=== PATIENT | male | born 1965 | race Caucasian/White ===

== ENCOUNTER 2016-12-27 13:17 | Emergency (ER) | payer OTHER ==
[2016-12-27] MEDS ORDERED: Ketorolac 30 MG/ML SDV IVPUSH ONE (13:37)
[2016-12-27] MEDS ORDERED: Ondansetron 4 MG/2 ML SDV IVPUSH ONE (13:37)
[2016-12-27] MEDS ORDERED: Sodium Chloride 0.9% 1,000 ML IV ONE (13:37)
--- NOTE | 2016-12-27 13:39 | EDM.PDOC ---
ED HPI GENERAL MEDICAL PROBLEM - General Chief Complaint: Abdominal Pain Stated Complaint: RIGHT SIDE ABDOMINAL PAIN Time Seen by Provider: 12/27/16 13:38 Source of Information: Reports: Patient - History of Present Illness INITIAL COMMENTS - FREE TEXT/NARRATIVE: HISTORY AND PHYSICAL: History of present illness: []Patient presents with right-sided abdominal pain upper and lower quadrant on the right 8 out of 10 today improved somewhat with Toradol, he has had chronic abdominal pain since 2007 he has had EGD and colonoscopy within the last month he has had multiple ERCPs performed didn't male as well as food allergy testing including celiac sprue and multiple other tests and cholecystectomy No fever he did complain of nausea on arrival no vomiting chills sweats no chest pain shortness breath headache dizziness palpitation no bowel or urine symptoms Review of systems: As per history of present illness and below otherwise all systems reviewed and negative. Past medical history: As per history of present illness and as reviewed below otherwise noncontributory. Surgical history: As per history of present illness and as reviewed below otherwise noncontributory. Social history: No reported history of drug or alcohol abuse. Family history: As per history of present illness and as reviewed below otherwise noncontributory. Physical exam: HEENT: Atraumatic, normocephalic, pupils reactive, negative for conjunctival pallor or scleral icterus, mucous membranes moist, throat clear, neck supple, nontender, trachea midline. Lungs: Clear to auscultation, breath sounds equal bilaterally, chest nontender. Heart: S1S2, regular, negative for clicks, rubs, or JVD. Abdomen: Soft, nondistended, nontender. On left, tender with deep palpation right upper quadrant as well as right lower quadrant no guarding or rebound Negative for masses or hepatosplenomegaly. Negative for costovertebral tenderness. Pelvis: Stable nontender. Genitourinary: Deferred. Rectal: Deferred. Extremities: Atraumatic, negative for cords or calf pain. Neurovascular unremarkable. Neuro: Awake, alert, oriented. Cranial nerves II through XII unremarkable. Cerebellum unremarkable. Motor and sensory unremarkable throughout. Exam nonfocal. Diagnostics: []Lab as below CT abdomen pelvis with and without contrast Therapeutics: []1 L normal saline bolus Zofran 8 mg IV Toradol 30 mg IV Pain medication offered patient declined Trial of Bentyl 4 times a day 7 days Follow-up with primary care in 2 weeks and specialty care through [facility] as needed Impression: []Abdominal pain Definitive disposition and diagnosis as appropriate pending reevaluation and review of above. Right Lower Abdomen Pain Score (Numeric/FACES): 10 - Related Data Allergies Allergy/AdvReac Type Severity Reaction Status Date / Time acetaminophen [From Percocet] Allergy Anaphylactic Verified 12/27/16 13:23 Shock codeine Allergy Anaphylactic Verified 12/27/16 13:23 Shock hydrocodone bitartrate Allergy Anaphylactic Verified 12/27/16 13:23 [From Vicodin] Shock morphine Allergy Anaphylactic Verified 12/27/16 13:23 Shock oxycodone HCl [From Percocet] Allergy Anaphylactic Verified 12/27/16 13:23 Shock Home Meds: Home Meds Levothyroxine Sodium [Synthroid] 25 mcg PO DAILY 09/19/15 [History] Metoprolol Succinate [Toprol XL] 25 mg PO DAILY 09/19/15 [History] Sertraline [Zoloft] 25 mg PO DAILY 09/19/15 [History] levETIRAcetam [Keppra] 1 dose PO ASDIRECTED 09/19/15 [History] Cyclobenzaprine [Flexeril] 10 mg PO DAILY 12/27/16 [History] Midodrine 5 mg PO DAILY 12/27/16 [History] Ranitidine [Zantac] 150 mg PO DAILY 12/27/16 [History] atorvaSTATin Calcium [Atorvastatin Calcium] 80 mg PO DAILY 12/27/16 [History] traZODone HCl [Trazodone HCl] 100 mg PO DAILY 12/27/16 [History] Past Medical History Cardiovascular History: Reports: Pacemaker, Other (See Below) Other Cardiovascular History: Vasovagal syncope dx Neurological History: Reports: Seizure Psychiatric History: Reports: Anxiety, Depression - Past Surgical History GI Surgical History: Reports: Colonoscopy Social & Family History - Family History Family Medical History: Noncontributory - Tobacco Use Smoking Status *Q: Never Smoker - Caffeine Use Caffeine Use: Reports: Coffee - Recreational Drug Use Recreational Drug Use: No ED ROS GENERAL - Review of Systems Review Of Systems: ROS reveals no pertinent complaints other than HPI. ED EXAM, GENERAL - Physical Exam Exam: See Below Course - Vital Signs Last Recorded V/S: Last Vital Signs Temp 36.6 C 12/27/16 14:27 Pulse 75 12/27/16 13:24 Resp 18 12/27/16 13:24 BP 117/79 12/27/16 14:27 Pulse Ox 95 12/27/16 13:24 - Orders/Labs/Meds Labs: Laboratory Tests 12/27/16 12/27/16 12/27/16 Range/Units 13:49 13:49 13:49 WBC 6.21 (4.0-11.0) K/uL RBC 5.01 (4.50-5.90) M/uL Hgb 15.8 (13.0-17.0) g/dL Hct 46.0 (38.0-50.0) % MCV 91.8 (80.0-98.0) fL MCH 31.5 (27.0-32.0) pg MCHC 34.3 (31.0-37.0) g/dL RDW Std Deviation 41.7 (28.0-62.0) fl RDW Coeff of Bela 13 (11.0-15.0) % Plt Count 216 (150-400) K/uL MPV 9.40 (7.40-12.00) fL Neut % (Auto) 57.4 (48.0-80.0) % Lymph % (Auto) 32.4 (16.0-40.0) % [place] % (Auto) 7.4 (0.0-15.0) % Eos % (Auto) 2.3 (0.0-7.0) % Baso % (Auto) 0.5 (0.0-1.5) % Neut # (Auto) 3.6 (1.4-5.7) K/uL Lymph # (Auto) 2.0 (0.6-2.4) K/uL [place] # (Auto) 0.5 (0.0-0.8) K/uL Eos # (Auto) 0.1 (0.0-0.7) K/uL Baso # (Auto) 0.0 (0.0-0.1) K/uL Nucleated RBC % 0.0 /100WBC Nucleated RBCs # 0 K/uL Sodium 140 (136-146) mmol/L Potassium 4.6 (3.5-5.1) mmol/L Chloride 107 (98-110) mmol/L Carbon Dioxide 26 (21-31) mmol/L BUN 19 (6.0-23.0) mg/dL Creatinine 1.0 (0.6-1.5) mg/dL Est Cr Clr Drug Dosing 103.89 mL/min Estimated GFR (MDRD) > 60.0 ml/min Glucose 110 (60-110) mg/dL Calcium 9.1 (8.8-10.8) mg/dL Total Bilirubin 0.7 (0.1-1.5) mg/dL AST 30 (5-40) IU/L ALT 64 H (8-54) IU/L Alkaline Phosphatase 96 (40-150) Troponin I < 0.10 (0.0-0.29) NG/ML Total Protein 6.9 (6.0-8.0) g/dL Albumin 4.4 (3.5-5.0) g/dL Globulin 2.5 (2.0-3.5) g/dL Albumin/Globulin Ratio 1.8 (1.3-2.8) Amylase 75 (10-90) U/L Lipase 9 (7-80) U/L Urine Color Urine Appearance Urine pH (5.0-8.0) Ur Specific [place] (1.001-1.035) Urine Protein (NEGATIVE) mg/dL Urine Glucose (UA) (NEGATIVE) mg/dL Urine Ketones (NEGATIVE) mg/dL Urine Occult Blood (NEGATIVE) Urine Nitrite (NEGATIVE) Urine Bilirubin (NEGATIVE) Urine Urobilinogen (<2.0) EU/dL Ur Leukocyte Esterase (NEGATIVE) Urine RBC (0-2/HPF) Urine WBC (0-5/HPF) Ur Epithelial Cells (NONE-FEW) Urine Bacteria (NEGATIVE) 12/27/16 Range/Units 14:10 WBC (4.0-11.0) K/uL RBC (4.50-5.90) M/uL Hgb (13.0-17.0) g/dL Hct (38.0-50.0) % MCV (80.0-98.0) fL MCH (27.0-32.0) pg MCHC (31.0-37.0) g/dL RDW Std Deviation (28.0-62.0) fl RDW Coeff of Bela (11.0-15.0) % Plt Count (150-400) K/uL MPV (7.40-12.00) fL Neut % (Auto) (48.0-80.0) % Lymph % (Auto) (16.0-40.0) % [place] % (Auto) (0.0-15.0) % Eos % (Auto) (0.0-7.0) % Baso % (Auto) (0.0-1.5) % Neut # (Auto) (1.4-5.7) K/uL Lymph # (Auto) (0.6-2.4) K/uL [place] # (Auto) (0.0-0.8) K/uL Eos # (Auto) (0.0-0.7) K/uL Baso # (Auto) (0.0-0.1) K/uL Nucleated RBC % /100WBC Nucleated RBCs # K/uL Sodium (136-146) mmol/L Potassium (3.5-5.1) mmol/L Chloride (98-110) mmol/L Carbon Dioxide (21-31) mmol/L BUN (6.0-23.0) mg/dL Creatinine (0.6-1.5) mg/dL Est Cr Clr Drug Dosing mL/min Estimated GFR (MDRD) ml/min Glucose (60-110) mg/dL Calcium (8.8-10.8) mg/dL Total Bilirubin (0.1-1.5) mg/dL AST (5-40) IU/L ALT (8-54) IU/L Alkaline Phosphatase (40-150) Troponin I (0.0-0.29) NG/ML Total Protein (6.0-8.0) g/dL Albumin (3.5-5.0) g/dL Globulin (2.0-3.5) g/dL Albumin/Globulin Ratio (1.3-2.8) Amylase (10-90) U/L Lipase (7-80) U/L Urine Color YELLOW Urine Appearance CLEAR Urine pH 5.0 (5.0-8.0) Ur Specific [place] 1.015 (1.001-1.035) Urine Protein NEGATIVE (NEGATIVE) mg/dL Urine Glucose (UA) NEGATIVE (NEGATIVE) mg/dL Urine Ketones NEGATIVE (NEGATIVE) mg/dL Urine Occult Blood NEGATIVE (NEGATIVE) Urine Nitrite NEGATIVE (NEGATIVE) Urine Bilirubin NEGATIVE (NEGATIVE) Urine Urobilinogen 0.2 (<2.0) EU/dL Ur Leukocyte Esterase NEGATIVE (NEGATIVE) Urine RBC NONE SEEN (0-2/HPF) Urine WBC NONE SEEN (0-5/HPF) Ur Epithelial Cells RARE (NONE-FEW) Urine Bacteria RARE (NEGATIVE) Meds: Medications Discontinued Medications Generic Name Dose Route Start Last Admin Trade Name Freq PRN Reason Stop Dose Admin Sodium Chloride 1,000 mls @ 999 mls/hr 12/27/16 13:37 12/27/16 14:04 Normal Saline IV 12/27/16 14:37 999 mls/hr STAT ONE Administration Iopamidol 100 ml 12/27/16 15:24 12/27/16 15:25 Isovue Multipack-370 (76%) IVPUSH 12/27/16 15:25 100 ml ONETIME STA Administration Ketorolac Tromethamine 30 mg 12/27/16 13:37 12/27/16 14:11 Toradol IVPUSH 12/27/16 13:38 30 mg ONETIME ONE Administration Ondansetron HCl 8 mg 12/27/16 13:37 12/27/16 14:11 Zofran IVPUSH 12/27/16 13:38 8 mg ONETIME ONE Administration Departure - Departure Time of Disposition: 16:26 Disposition: Home, Self-Care 01 Condition: Good Clinical Impression: Abdominal pain - Discharge Information Forms: ED Department Discharge Additional Instructions: Medication as prescribed Return if symptoms persist or worsen Follow-up with primary care in 2 weeks specialty services as needed The following information is given to patients seen in the emergency department who are being discharged to home. This information is to outline your options for follow-up care. We provide all patients seen in our emergency department with a follow-up referral. The need for follow-up, as well as the timing and circumstances, are variable depending upon the specifics of your emergency department visit. If you don't have a primary care physician on staff, we will provide you with a referral. We always advise you to contact your personal physician following an emergency department visit to inform them of the circumstance of the visit and for follow-up with them and/or the need for any referrals to a consulting specialist. The emergency department will also refer you to a specialist when appropriate. This referral assures that you have the opportunity for follow-up care with a specialist. All of these measure are taken in an effort to provide you with optimal care, which includes your follow-up. Under all circumstances we always encourage you to contact your private physician who remains a resource for coordinating your care. When calling for follow-up care, please make the office aware that this follow-up is from your recent emergency room visit. If for any reason you are refused follow-up, please contact the [facility] emergency department at and asked to speak to the emergency department charge nurse.
[2016-12-27 14:17] LABS: CHLORIDE,CL 107 mmol/L (98-110); SODIUM,NA 140 mmol/L (136-146)
[2016-12-27] MEDS ORDERED: Iopamidol 755 MG/ML 500 ML Multipack Bottle IVPUSH STA (15:24)
--- NOTE | 2016-12-27 16:04 | CT ---
CT scan of the abdomen and pelvis including postcontrast exam Clinical history abdominal pain Procedure: Multiple computed tomographic sections of the abdomen and pelvis were obtained prior to a nd after administration of intravenous contrast form of Isovue-370 100 mL. Findings: Lung bases and lower chest: No pulmonary parenchymal abnormalities are identified. There is a cardia c pacemaker in place. Liver pancreas biliary tract and spleen: There is significant hepatic steatosis with normal-sized sp shanice normal pancreas and evidence of prior cholecystectomy. Kidneys adrenals and retroperitoneum: There is no hydronephrosis hydroureter or nephrocalcinosis K s how an or enhancing renal mass. Kidneys are symmetric in size and appearance. Adrenal glands are nor mal. No retroperitoneal adenopathy. Bowel and mesentery: There is no evidence of a dilated tubular appendix or pericecal pathology. A fe w minor diverticula of the sigmoid colon are present without diverticulitis. No abnormally dilated b owel. Pelvic organs and lymph nodes: There is no pelvic mass or lymphadenopathy. Prostate is normal. Bladd er is normal. Skeleton: No aggressive bony lesions. No specific acute findings Impression: Hepatic steatosis. Cholecystectomy. No acute abnormalities.
[2016-12-27 16:59] VITALS: BP 129/72
== END 2016-12-27 16:35 | disposition home or self-care (01) ==
LOC: MW.ED 13:17
DX: R10.11 Right upper quadrant pain (principal); R10.31 Right lower quadrant pain; F41.9 Anxiety disorder, unspecified; F32.9 Major depressive disorder, single episode, unspecified; Z98.890 Other specified postprocedural states; Z79.899 Other long term (current) drug therapy; Z88.5 Allergy status to narcotic agent; Z88.6 Allergy status to analgesic agent
CPT/HCPCS: 36415; 74178; 80053; 81001; 82150; 83690; 84484; 85025; 96361; 96374; 96375; 99284; J1885; J2405; J7040; Q9967

== ENCOUNTER 2017-01-27 16:42 | Emergency (ER) | payer MEDICARE, BC ==
--- NOTE | 2017-01-27 17:18 | EDM.PDOC ---
ED HPI GENERAL MEDICAL PROBLEM - General Chief Complaint: Lower Extremity Injury/Pain Stated Complaint: BOTH KNEES ARE REDISH W/NO BLOOD FLOW Time Seen by Provider: 01/27/17 16:57 - History of Present Illness INITIAL COMMENTS - FREE TEXT/NARRATIVE: HISTORY AND PHYSICAL: History of present illness: Patient is a 52-year-old male with a history of hypertension hypothyroidism hypercholesterolemia and [place] [facility] [place] [facility] and presents with complaints of redness warmth and pain to his left knee which have persisted and only mild symptoms earlier on his right knee that have now gone away. The patient says that both knees looked somewhat reddish and felt warm earlier this afternoon but the right knee symptoms have subsided. The left knee symptoms have persisted and he has not noticed any gross swelling. He has had no recent trauma to the area but he was doing yard work today in which he was on his knees. The patient now after discussing things with me says that his knee felt a little funny and it may have given out a couple of days ago and he had some discomfort with it which he did not recall until we were talking about it. He has no calf tenderness or swelling he has no distal ankle or foot tenderness and no proximal hip tenderness. He has no systemic complaints of fever chills chest pain shortness of breath nausea vomiting. The patient also incidentally tells me that he has run out of his metoprolol and is concerned about not having a prescription. The patient has not taken anything for this pain and does not request anything for the pain. He does not have pain behind the knee and only anteriorly. The patient says that he has had surgery on his right knee in the past and he was told that he would likely need surgery on his left knee but he never had that surgery performed and that was back in the late 1980s. Patient denies any other joint redness swelling or discomfort. Review of systems: As per history of present illness and below otherwise all systems reviewed and negative. Past medical history: As per history of present illness and as reviewed below otherwise noncontributory. Surgical history: As per history of present illness and as reviewed below otherwise noncontributory. Social history: No reported history of drug or alcohol abuse. Family history: As per history of present illness and as reviewed below otherwise noncontributory. Physical exam: Gen.: Well-developed well-nourished man who is nontoxic and speaking clearly and easily in the ED. HEENT: Atraumatic, normocephalic, negative for conjunctival pallor or scleral icterus, mucous membranes moist, throat clear, neck supple, nontender, trachea midline. Lungs: Clear to auscultation, breath sounds equal bilaterally, chest nontender. Heart: S1S2, regular rate and rhythm no overt murmurs Abdomen: Soft, nondistended, nontender. NABS Pelvis: Stable nontender. No lateral hip tenderness with no palpable bony deformities appreciated in any of the extremities Genitourinary: Deferred. Rectal: Deferred. Extremities: Atraumatic with full range of motion and no palpable bony deformities, there is no leg asymmetry or calf tenderness and no pedal edema, at the right knee there is an old well-healed incision and there is no soft tissue swelling joint effusion warmth or erythema appreciated. At the left knee there is ill-defined pink erythema and warmth but no joint effusion and no palpable bony deformities and there is some tenderness with deep palpation. There is no tenderness in the popliteal fossa. There is no streaking of the erythema and no maximal thigh tenderness sore swelling. The legs are, negative for cords or calf pain. Neurovascular unremarkable. Neuro: Awake, alert, oriented. Cranial nerves II through XII unremarkable. Cerebellum unremarkable. Motor and sensory unremarkable throughout. Exam nonfocal. Diagnostics: CBC CMP CRP sedimentation rate uric acid bilateral knee x-rays Therapeutics: Patient deferred pain medication at this time, prednisone Discussed all testing results with the patient and family at bedside and throughout the course of the patient's stay here despite no medications being given the area of erythema and warmth at the left knee has decreased. I've also discussed with them that they could be possibly a low-grade cellulitis due to his kneeling today and that would cover him with Keflex. I will write for diclofenac as an anti-inflammatory and I will put him on a brief burst of steroids to help with the probable inflammatory arthritis that we are seeing. I will refer him to the orthopedic clinic and stressed the need for follow-up. I discussed reasons to return to the ED. Patient continues to be nontoxic and is aware to monitor his temperature and any changes in the erythema and the legs. Impression: Inflammatory arthritis/bilateral knee pain Definitive disposition and diagnosis as appropriate pending reevaluation and review of above. - Related Data Allergies Allergy/AdvReac Type Severity Reaction Status Date / Time acetaminophen [From Percocet] Allergy Anaphylactic Verified 01/27/17 17:00 Shock codeine Allergy Anaphylactic Verified 01/27/17 17:00 Shock hydrocodone bitartrate Allergy Anaphylactic Verified 01/27/17 17:00 [From Vicodin] Shock morphine Allergy Anaphylactic Verified 01/27/17 17:00 Shock oxycodone [From OxyContin] Allergy Redness Verified 01/27/17 17:00 oxycodone HCl [From Percocet] Allergy Anaphylactic Verified 01/27/17 17:00 Shock Home Meds: Home Meds Levothyroxine Sodium [Synthroid] 100 mcg PO DAILY 09/19/15 [History] Metoprolol Succinate [Toprol XL] 0.5 tab PO BID 09/19/15 [History] Sertraline [Zoloft] 50 mg PO DAILY 09/19/15 [History] levETIRAcetam [Keppra] 750 mg PO DAILY 09/19/15 [History] Cyclobenzaprine [Flexeril] 10 mg PO DAILY 12/27/16 [History] Midodrine 5 mg PO DAILY 12/27/16 [History] atorvaSTATin Calcium [Atorvastatin Calcium] 80 mg PO DAILY 12/27/16 [History] traZODone HCl [Trazodone HCl] 100 mg PO DAILY 12/27/16 [History] Past Medical History Cardiovascular History: Reports: Pacemaker, Other (See Below) Other Cardiovascular History: Vasovagal syncope dx Neurological History: Reports: Seizure Psychiatric History: Reports: Anxiety, Depression - Past Surgical History GI Surgical History: Reports: Colonoscopy Social & Family History - Family History Family Medical History: Noncontributory - Tobacco Use Smoking Status *Q: Never Smoker - Caffeine Use Caffeine Use: Reports: Coffee - Recreational Drug Use Recreational Drug Use: No Review of Systems - Review of Systems Review Of Systems: ROS reveals no pertinent complaints other than HPI. ED EXAM, GENERAL - Physical Exam Exam: See Below (See dictation) Course - Vital Signs Last Recorded V/S: Last Vital Signs Temp 36.6 C 01/27/17 16:54 Pulse 106 H 01/27/17 16:54 Resp 16 01/27/17 16:54 BP 119/86 01/27/17 16:54 Pulse Ox 96 01/27/17 16:54 - Orders/Labs/Meds Orders: Active Orders 24 hr Category Date Time Status Knee 3V Lt [CR] Stat Exams 01/27/17 17:10 Taken Knee 3V Rt [CR] Stat Exams 01/27/17 17:10 Taken predniSONE Med 01/27/17 18:47 Once 40 mg PO ONETIME ONE Labs: Laboratory Tests 01/27/17 01/27/17 Range/Units 17:20 17:20 WBC 6.41 (4.0-11.0) K/uL RBC 4.99 (4.50-5.90) M/uL Hgb 15.8 (13.0-17.0) g/dL Hct 45.3 (38.0-50.0) % MCV 90.8 (80.0-98.0) fL MCH 31.7 (27.0-32.0) pg MCHC 34.9 (31.0-37.0) g/dL RDW Std Deviation 40.4 (28.0-62.0) fl RDW Coeff of Bela 12 (11.0-15.0) % Plt Count 197 (150-400) K/uL MPV 9.30 (7.40-12.00) fL Neut % (Auto) 55.9 (48.0-80.0) % Lymph % (Auto) 31.4 (16.0-40.0) % [place] % (Auto) 9.2 (0.0-15.0) % Eos % (Auto) 3.0 (0.0-7.0) % Baso % (Auto) 0.5 (0.0-1.5) % Neut # (Auto) 3.6 (1.4-5.7) K/uL Lymph # (Auto) 2.0 (0.6-2.4) K/uL [place] # (Auto) 0.6 (0.0-0.8) K/uL Eos # (Auto) 0.2 (0.0-0.7) K/uL Baso # (Auto) 0.0 (0.0-0.1) K/uL Nucleated RBC % 0.0 /100WBC Nucleated RBCs # 0 K/uL ESR 1 (0-19) mm/hr Sodium 141 (136-146) mmol/L Potassium 4.6 (3.5-5.1) mmol/L Chloride 106 (98-110) mmol/L Carbon Dioxide 28 (21-31) mmol/L BUN 14 (6.0-23.0) mg/dL Creatinine 1.1 (0.6-1.5) mg/dL Est Cr Clr Drug Dosing 93.41 mL/min Estimated GFR (MDRD) > 60.0 ml/min Glucose 102 (60-110) mg/dL Uric Acid 6.4 (2.1-7.4) mg/dL Calcium 9.8 (8.8-10.8) mg/dL Total Bilirubin 0.5 (0.1-1.5) mg/dL AST 35 (5-40) IU/L ALT 70 H (8-54) IU/L Alkaline Phosphatase 101 (40-150) C-Reactive Protein 0.16 (0.0-0.5) mg/dL Total Protein 6.9 (6.0-8.0) g/dL Albumin 4.3 (3.5-5.0) g/dL Globulin 2.6 (2.0-3.5) g/dL Albumin/Globulin Ratio 1.7 (1.3-2.8) Departure - Departure Time of Disposition: 18:46 Disposition: Home, Self-Care 01 Condition: Good Clinical Impression: Bilateral knee pain Qualifiers: Chronicity: acute Qualified Code(s): M25.561 - Pain in right knee; M25.562 - Pain in left knee - Discharge Information Referrals: Norma Pfeiffer DUCK OPERATOR [Primary Care Provider] - Forms: ED Department Discharge Additional Instructions: The following information is given to patients seen in the emergency department who are being discharged to home. This information is to outline your options for follow-up care. We provide all patients seen in our emergency department with a follow-up referral. The need for follow-up, as well as the timing and circumstances, are variable depending upon the specifics of your emergency department visit. If you don't have a primary care physician on staff, we will provide you with a referral. We always advise you to contact your personal physician following an emergency department visit to inform them of the circumstance of the visit and for follow-up with them and/or the need for any referrals to a consulting specialist. The emergency department will also refer you to a specialist when appropriate. This referral assures that you have the opportunity for followup care with a specialist. All of these measure are taken in an effort to provide you with optimal care, which includes your followup. Under all circumstances we always encourage you to contact your private physician who remains a resource for coordinating your care. When calling for followup care, please make the office aware that this follow-up is from your recent emergency room visit. If for any reason you are refused follow-up, please contact the [facility] emergency department at and ask to speak to the emergency department charge nurse. [facility]Orthopedic clinic Professional Building [address] [place] [address] [address] [place] [address] [facility] Medicine and Family [facility] [address] [place] [id number] Please call and follow-up with our orthopedics clinic as we discussed and ice and elevate the areas. Use medications as prescribed and monitor the redness warmth in any fevers you may have. Return to ER as needed and as discussed. - My Orders Last 24 Hours: My Active Orders 01/27/17 17:10 Knee 3V Lt [CR] Stat Knee 3V Rt [CR] Stat 01/27/17 18:47 predniSONE 40 mg PO ONETIME ONE - Assessment/Plan Last 24 Hours: My Active Orders 01/27/17 17:10 Knee 3V Lt [CR] Stat Knee 3V Rt [CR] Stat 01/27/17 18:47 predniSONE 40 mg PO ONETIME ONE
[2017-01-27 17:51] LABS: CHLORIDE,CL 106 mmol/L (98-110); SODIUM,NA 141 mmol/L (136-146)
[2017-01-27] MEDS ORDERED: predniSONE 20 MG Tab PO ONE (18:47)
[2017-01-27 19:04] VITALS: BP 127/79
--- NOTE | 2017-01-29 15:02 | CR ---
EXAM DATE: 01/27/17 PATIENT'S AGE: 52 Patient: IRAIS HORTON Facility: [place], [place] Site . Site : [id number] Study: XRay Knee Left [id number] 6:02:02 PM Ordering Physician: Doug Beltrán Final Report: INDICATION: Pain. Evaluate for arthritic changes. Technique: Three views left knee. Findings: Minimal degenerative changes left knee. Left knee otherwise negative. Dictated by Yassine Saldivar MD @ Jan 27 2017 6:30PM (Electronic Signature) Report Signed by Proxy. PIETRO
--- NOTE | 2017-01-29 15:03 | CR ---
EXAM DATE: 01/27/17 PATIENT'S AGE: 52 Patient: IRAIS HORTON Facility: [place], [place] Site . Site : 1965 Study: XRay Knee Right [id number]/9/[id number] 6:02:48 PM Ordering Physician: Doug Beltrán Final Report: INDICATION: Pain. Evaluate for arthritic changes. Technique: Three views right knee. Findings: Mild to moderate soft tissue swelling right knee anteriorly extending to the infrapatellar region. Cortical irregularity and cortical thickening involving the right proximal tibia anteriorly with possible lucent and sclerotic tracts suggesting prior surgery. Clinical correlation recommended. Mild degenerative arthritis right knee. Right patella is high-riding. Right knee otherwise negative. Dictated by Yassine Saldivar MD @ Jan 27 2017 6:30PM (Electronic Signature) Report Signed by Proxy. PIETRO
== END 2017-01-27 19:01 | disposition home or self-care (01) ==
LOC: MW.ED 16:42
DX: M25.562 Pain in left knee (principal); M25.561 Pain in right knee; F41.9 Anxiety disorder, unspecified; F32.9 Major depressive disorder, single episode, unspecified; I10 Essential (primary) hypertension; E03.9 Hypothyroidism, unspecified; E78.00 Pure hypercholesterolemia, unspecified; Z88.6 Allergy status to analgesic agent; Z88.5 Allergy status to narcotic agent; Z79.899 Other long term (current) drug therapy
CPT/HCPCS: 36415; 73562; 80053; 84550; 85025; 85652; 86140; 99283; A9270

== ENCOUNTER 2017-08-12 13:17 | Emergency (ER) | payer MEDICARE, BC, OTHER ==
[2017-08-12] MEDS ORDERED: Ondansetron 4 MG/2 ML SDV IVPUSH ONE (13:53)
[2017-08-12] MEDS ORDERED: Sodium Chloride 0.9% 2.5 ML Syringe FLUSH PRN (13:53)
[2017-08-12] MEDS ORDERED: Sodium Chloride 0.9% 1,000 ML IV ONE (13:53)
[2017-08-12] MEDS ORDERED: Sodium Chloride 0.9% 10 ML Syringe FLUSH PRN (13:53)
--- NOTE | 2017-08-12 13:56 | EDM.PDOC ---
ED HPI GENERAL MEDICAL PROBLEM - General Chief Complaint: Abdominal Pain Stated Complaint: ABD PAIN AND DIZZINESS Time Seen by Provider: 08/12/17 13:54 Source of Information: Reports: Patient History Limitations: Reports: No Limitations - History of Present Illness INITIAL COMMENTS - FREE TEXT/NARRATIVE: HISTORY AND PHYSICAL: []52-year-old male presenting with pain to the umbilicus History of Present Illness: []Reported history of pain that is sharp He does have history of pacemaker Review of Systems: As per history of present illness and below otherwise all systems reviewed and negative. Past medical history: As per history of present illness and as reviewed below otherwise noncontributory. Surgical history: As per history of present illness and as reviewed below otherwise noncontributory. Social history: No reported history of drug or alcohol abuse. Family history: As per history of present illness and as reviewed below otherwise noncontributory. Physical exam: Alert and oriented male to questions appropriately in full sentences without any shortness of breath HEENT: Atraumatic, normocehpalic, pupils reactive, negative for conjunctival pallor or scleral icterus, mucous membranes moist, throat clear, neck supple, nontender, trachea midline. Lungs: Clear to auscultation, breath sounds equal bilaterally, chest non tender. Heart: S1S2, regular, negative for clicks, rubs, or JVD. Abdomen: Soft, nondistended, tender to umbilicus. Negative for masses or hepatossplenmegaly. Positive for costovertebral tenderness. No rebound. No guarding. Pelvis: Stable nontender. Genitourinary: Deferred. Rectal: Deferred Extremities: Atraumatic, negative for cords or calf pain. Neurovascular unremarkable. Neuro: Awake, alert, oriented. Cranial nerves II through XII unremarkable. Cerebellum unremarkable. Motor and sensory unremarkable throughout. Exam nonfocal. is reporting that yesterday patient had weakness to his legs and pain bilaterally had to sit down and this happened again in gnosticist today Discussed with the patient and his that negative reports are noted from the Doppler ultrasound from his lab work and from the CT of his abdomen Diagnostics: [CBC CMP amylase lipase CT abdomen with contrast Doppler Ultrasound bilateral legs] Therapeutics: [1 L normal saline Zofran 4 mg IV] Impression: [Enteritis Leg pain] Plan: []Discharged home Clear liquids 24 hours only increase solid foods Tylenol should a fever. Appear Definitive disposition and diagnosis as appropriate pending reevaluation and review of above. Onset: Gradual Duration: Day(s): (4) Location: Reports: Abdomen, Generalized Quality: Reports: Stabbing Severity: Moderate Improves with: Reports: None Worsens with: Reports: None Associated Symptoms: Reports: No Other Symptoms Mid-Anterior Abdomen Pain Score (Numeric/FACES): 5 - Related Data Allergies Allergy/AdvReac Type Severity Reaction Status Date / Time acetaminophen [From Percocet] Allergy Anaphylactic Verified 01/27/17 17:00 Shock codeine Allergy Anaphylactic Verified 01/27/17 17:00 Shock hydrocodone bitartrate Allergy Anaphylactic Verified 01/27/17 17:00 [From Vicodin] Shock morphine Allergy Anaphylactic Verified 01/27/17 17:00 Shock oxycodone [From OxyContin] Allergy Redness Verified 01/27/17 17:00 oxycodone HCl [From Percocet] Allergy Anaphylactic Verified 01/27/17 17:00 Shock Home Meds: Home Meds Levothyroxine Sodium [Synthroid] 100 mcg PO DAILY 09/19/15 [History] Metoprolol Succinate [Toprol XL] 0.5 tab PO BID 09/19/15 [History] Sertraline [Zoloft] 100 mg PO DAILY 09/19/15 [History] levETIRAcetam [Keppra] 750 mg PO DAILY 09/19/15 [History] Cyclobenzaprine [Flexeril] 10 mg PO DAILY PRN 12/27/16 [History] Midodrine 5 mg PO DAILY 12/27/16 [History] atorvaSTATin Calcium [Atorvastatin Calcium] 80 mg PO DAILY 12/27/16 [History] traZODone HCl [Trazodone HCl] 100 mg PO DAILY 12/27/16 [History] Past Medical History Cardiovascular History: Reports: Pacemaker, Other (See Below) Other Cardiovascular History: Vasovagal syncope dx Musculoskeletal History: Reports: Other (See Below) Other Musculoskeletal History: R shoulder injury Neurological History: Reports: Seizure Psychiatric History: Reports: Anxiety, Depression Endocrine/Metabolic History: Reports: Other (See Below) Other Endocrine/Metabolic History: Waqar's - Infectious Disease History Infectious Disease History: Reports: C-Difficile - Past Surgical History GI Surgical History: Reports: Colonoscopy Musculoskeletal Surgical History: Reports: Arthroscopic Knee, Arthroscopic Procedure Social & Family History - Family History Family Medical History: Noncontributory - Tobacco Use Smoking Status *Q: Never Smoker Second Hand Smoke Exposure: No - Caffeine Use Caffeine Use: Reports: Coffee Caffeine Use Comment: rare - Recreational Drug Use Recreational Drug Use: No ED ROS GENERAL - Review of Systems Review Of Systems: ROS reveals no pertinent complaints other than HPI. ED EXAM, GI/ABD - Physical Exam Exam: See Below (See dictation) EKG INTERPRETATION EKG Date: 08/12/17 Rhythm: NSR Comparison: NA - No Prior EKG Course - Vital Signs Last Recorded V/S: Last Vital Signs Temp 37.3 C 08/12/17 13:47 Pulse 75 08/12/17 13:47 Resp 18 08/12/17 13:47 BP 118/78 08/12/17 13:47 Pulse Ox 95 08/12/17 13:47 - Orders/Labs/Meds Orders: Active Orders 24 hr Category Date Time Status EKG Documentation Completion [RC] STAT Care 08/12/17 13:59 Active Abdomen Pelvis w Cont [CT] Stat Exams 08/12/17 13:53 Taken Venous Doppler Lwr Ext Bi [US] Stat Exams 08/12/17 15:02 Taken CULTURE URINE [RM] Stat Lab 08/12/17 14:07 Received Sodium Chloride 0.9% [Saline Flush] Med 08/12/17 13:53 Active 10 ml FLUSH ASDIRECTED PRN Sodium Chloride 0.9% [Saline Flush] Med 08/12/17 13:53 Active 2.5 ml FLUSH ASDIRECTED PRN Saline Lock Insert [OM.PC] Stat Oth 08/12/17 13:52 Ordered Medication Orders Sodium Chloride (Saline Flush) 10 ml FLUSH ASDIRECTED PRN PRN Reason: Keep Vein Open Last Admin: 08/12/17 14:04 Dose: 10 ml Sodium Chloride (Saline Flush) 2.5 ml FLUSH ASDIRECTED PRN PRN Reason: Keep Vein Open Last Admin: 08/12/17 14:05 Dose: 2.5 ml Labs: Laboratory Tests 08/12/17 08/12/17 08/12/17 Range/Units 14:00 14:01 14:01 WBC 7.91 (4.0-11.0) K/uL RBC 5.12 (4.50-5.90) M/uL Hgb 15.8 (13.0-17.0) g/dL Hct 46.2 (38.0-50.0) % MCV 90.2 (80.0-98.0) fL MCH 30.9 (27.0-32.0) pg MCHC 34.2 (31.0-37.0) g/dL RDW Std Deviation 40.5 (28.0-62.0) fl RDW Coeff of Bela 12 (11.0-15.0) % Plt Count 203 (150-400) K/uL MPV 9.10 (7.40-12.00) fL Neut % (Auto) 62.6 (48.0-80.0) % Lymph % (Auto) 29.5 (16.0-40.0) % Pope % (Auto) 5.9 (0.0-15.0) % Eos % (Auto) 1.6 (0.0-7.0) % Baso % (Auto) 0.4 (0.0-1.5) % Neut # (Auto) 5.0 (1.4-5.7) K/uL Lymph # (Auto) 2.3 (0.6-2.4) K/uL Pope # (Auto) 0.5 (0.0-0.8) K/uL Eos # (Auto) 0.1 (0.0-0.7) K/uL Baso # (Auto) 0.0 (0.0-0.1) K/uL Nucleated RBC % 0.0 /100WBC Nucleated RBCs # 0 K/uL Sodium 138 (136-148) mmol/L Potassium 4.2 (3.5-5.1) mmol/L Chloride 101 (98-107) mmol/L Carbon Dioxide 28.2 (21.0-32.0) mmol/L BUN 17 (7.0-18.0) mg/dL Creatinine 1.1 (0.8-1.3) mg/dL Est Cr Clr Drug Dosing 93.41 mL/min Estimated GFR (MDRD) > 60.0 ml/min Glucose 94 (74-106) mg/dL Calcium 9.2 (8.5-10.1) mg/dL Total Bilirubin 0.4 (0.2-1.0) mg/dL AST 33 (15-37) IU/L ALT 65 H (14-63) IU/L Alkaline Phosphatase 96 (46-116) U/L Total Protein 7.0 (6.4-8.2) g/dL Albumin 4.2 (3.4-5.0) g/dL Globulin 2.8 (2.0-3.5) g/dL Albumin/Globulin Ratio 1.5 (1.3-2.8) Urine Color YELLOW Urine Appearance CLEAR Urine pH 6.0 (5.0-8.0) Ur Specific [place] <= 1.005 (1.001-1.035) Urine Protein NEGATIVE (NEGATIVE) mg/dL Urine Glucose (UA) NEGATIVE (NEGATIVE) mg/dL Urine Ketones NEGATIVE (NEGATIVE) mg/dL Urine Occult Blood NEGATIVE (NEGATIVE) Urine Nitrite NEGATIVE (NEGATIVE) Urine Bilirubin NEGATIVE (NEGATIVE) Urine Urobilinogen 0.2 (<2.0) EU/dL Ur Leukocyte Esterase NEGATIVE (NEGATIVE) Urine RBC NONE SEEN (0-2/HPF) Urine WBC NONE SEEN (0-5/HPF) Ur Epithelial Cells RARE (NONE-FEW) Urine Bacteria NOT SEEN (NEGATIVE) Meds: Medications Generic Name Dose Route Start Last Admin Trade Name Fretushar PRN Reason Stop Dose Admin Sodium Chloride 10 ml 08/12/17 13:53 08/12/17 14:04 Saline Flush FLUSH 10 ml ASDIRECTED PRN Administration Keep Vein Open Sodium Chloride 2.5 ml 08/12/17 13:53 08/12/17 14:05 Saline Flush FLUSH 2.5 ml ASDIRECTED PRN Administration Keep Vein Open Discontinued Medications Generic Name Dose Route Start Last Admin Trade Name Freq PRN Reason Stop Dose Admin Sodium Chloride 1,000 mls @ 999 mls/hr 08/12/17 13:53 08/12/17 14:04 Normal Saline IV 08/12/17 14:53 999 mls/hr STAT ONE Administration Iopamidol 100 ml 08/12/17 15:36 08/12/17 15:36 Isovue Multipack-370 (76%) IVPUSH 08/12/17 15:37 100 ml ONETIME STA Administration Ondansetron HCl 4 mg 08/12/17 13:53 08/12/17 14:04 Zofran IVPUSH 08/12/17 13:54 4 mg ONETIME ONE Administration Departure - Departure Time of Disposition: 16:17 Disposition: Home, Self-Care 01 Condition: Good Clinical Impression: Abdominal pain Qualifiers: Abdominal location: periumbilical Qualified Code(s): R10.33 - Periumbilical pain - Discharge Information Instructions: Viral Gastroenteritis, Adult, [id number] Referrals: Scott Wing MD [Primary Care Provider] - Forms: ED Department Discharge Additional Instructions: The following information is given to patients seen in the emergency department who are being discharged to home. This information is to outline your options for follow-up care. We provide all patients seen in our emergency department with a follow-up referral. The need for follow-up, as well as the timing and circumstances, are variable depending upon the specifics of your emergency department visit. If you don't have a primary care physician on staff, we will provide you with a referral. We always advise you to contact your personal physician following an emergency department visit to inform them of the circumstance of the visit and for follow-up with them and/or the need for any referrals to a consulting specialist. The emergency department will also refer you to a specialist when appropriate. This referral assures that you have the opportunity for followup care with a specialist. All of these measure are taken in an effort to provide you with optimal care, which includes your followup. Under all circumstances we always encourage you to contact your private physician who remains a resource for coordinating your care. When calling for followup care, please make the office aware that this follow-up is from your recent emergency room visit. If for any reason you are refused follow-up, please contact the [facility] emergency department at and asked to speak to the emergency department charge nurse. Tylenol for discomfort or fever No specific cause is noted for your abdominal pain at this time return to the emergency room as discussed as needed Follow up with your primary care provider in 3 days - My Orders Last 24 Hours: My Active Orders 08/12/17 13:52 Saline Lock Insert [OM.PC] Stat 08/12/17 13:53 Abdomen Pelvis w Cont [CT] Stat Sodium Chloride 0.9% [Saline Flush] 10 ml FLUSH ASDIRECTED PRN Sodium Chloride 0.9% [Saline Flush] 2.5 ml FLUSH ASDIRECTED PRN 08/12/17 13:59 EKG Documentation Completion [RC] STAT 08/12/17 14:07 CULTURE URINE [RM] Stat 08/12/17 15:02 Venous Doppler Lwr Ext Bi [US] Stat - Assessment/Plan Last 24 Hours: My Active Orders 08/12/17 13:52 Saline Lock Insert [OM.PC] Stat 08/12/17 13:53 Abdomen Pelvis w Cont [CT] Stat Sodium Chloride 0.9% [Saline Flush] 10 ml FLUSH ASDIRECTED PRN Sodium Chloride 0.9% [Saline Flush] 2.5 ml FLUSH ASDIRECTED PRN 08/12/17 13:59 EKG Documentation Completion [RC] STAT 08/12/17 14:07 CULTURE URINE [RM] Stat 08/12/17 15:02 Venous Doppler Lwr Ext Bi [US] Stat
[2017-08-12 14:27] LABS: CHLORIDE,CL 101 mmol/L (98-107); SODIUM,NA 138 mmol/L (136-148)
[2017-08-12] MEDS ORDERED: Iopamidol 755 MG/ML 200 ML Multipack Bottle IVPUSH STA (15:36)
[2017-08-12 16:41] VITALS: BP 140/93
--- NOTE | 2017-08-13 15:59 | US ---
EXAM DATE: 08/12/17 PATIENT'S AGE: 52 Patient: IRAIS HORTON Facility: [place], [place] Site . Site : 1965 Study: US Extremity Bilateral [id number]/25/2018 3:39:00 PM Ordering Physician: Doctor Anderson Final Report: INDICATION: Pain bilateral lower extremities. TECHNIQUE: A compression venous ultrasound exam was performed of both lower extremities using foreman scale imaging, color Doppler and spectral Doppler analysis. FINDINGS: Sonographic imaging of the lower extremities demonstrates normal compressibility and color Doppler venous blood flow within the common femoral, deep femoral, and proximal greater saphenous veins. Within the thighs the femoral veins are patent and compressible. At a lower level the popliteal and posterior tibial veins also show normal compressibility and color Doppler venous blood flow. IMPRESSION: Normal venous ultrasound exam. No evidence of deep vein thrombosis within either the left or right lower extremity. Dictated by Pura Palacios MD @ Aug 12 2017 3:44PM (Electronic Signature) Report Signed by Proxy. PIETRO
--- NOTE | 2017-08-13 16:00 | CT ---
EXAM DATE: 08/12/17 PATIENT'S AGE: 52 Patient: IRAIS HORTON Facility: [place], [place] Site . Site : 1965 Study: CT Abdomen/Pelvis [id number]/25/2018 3:42:17 PM Ordering Physician: Doctor Anderson Final Report: INDICATION: Abdominal pain. TECHNIQUE: Volumetric CT scan abdomen/pelvis with 100 mL Isovue-370 injected intravenously. COMPARISON: None. FINDINGS: The visualized lung bases are clear. There is no nodule, mass, or pleural/ pericardial fluid accumulation. Pacemaker leads within the heart. Heart size normal. Diffusely diminished attenuation of the liver compatible with steatosis. No focal hepatic lesion identified. Cholecystectomy clips. There is no biliary enlargement/calculi. Mild fatty replacement of the pancreas. Otherwise normal appearance of solid abdominal organs. No evidence of abdominal aortic aneurysm. There is no adenopathy. Mildly increased amount of stool within the colon. Normal appendix. Mild increased amount of fluid/distention of duodenum and proximal jejunum, this appearance is not specific. No evidence to suggest mass/obstruction. No intraperitoneal free air identified. No evidence of ascites. Impression : 1. Hepatic steatosis. 2. Nonspecific slight distention of proximal small bowel without mass/obstruction/specific alteration. Consider nonspecific enteritis. Please note that all CT scans at this facility use dose modulation, iterative reconstruction, and/or weight-based dosing when appropriate to reduce radiation dose to as low as reasonably achievable. Dictated by Jose Guadalupe Alvarez MD @ Aug 12 2017 3:45PM (Electronic Signature) Report Signed by Proxy. [facility]
== END 2017-08-12 16:33 | disposition home or self-care (01) ==
LOC: MW.ED 13:17
DX: K52.9 Noninfective gastroenteritis and colitis, unspecified (principal); M79.604 Pain in right leg; M79.605 Pain in left leg; F41.9 Anxiety disorder, unspecified; F32.9 Major depressive disorder, single episode, unspecified; Z88.8 Allergy status to other drugs, medicaments and biological substances; Z88.5 Allergy status to narcotic agent; Z79.899 Other long term (current) drug therapy
CPT/HCPCS: 36415; 74177; 80053; 81001; 85025; 87086; 93005; 93970; 96361; 96374; 99284; J2405; J7040; Q9967; 99283

== ENCOUNTER 2018-08-25 12:14 | Emergency (ER) | payer OTHER, MEDICARE, BC ==
[2018-08-25] MEDS ORDERED: Sodium Chloride 0.9% 10 ML Syringe FLUSH PRN (12:23)
[2018-08-25] MEDS ORDERED: Sodium Chloride 0.9% 2.5 ML Syringe FLUSH PRN (12:23)
--- NOTE | 2018-08-25 12:32 | EDM.PDOC ---
ED HPI GENERAL MEDICAL PROBLEM - General Chief Complaint: Chest Pain Stated Complaint: CHEST PAIN Time Seen by Provider: 08/25/18 12:23 Source of Information: Reports: Patient History Limitations: Reports: No Limitations - History of Present Illness INITIAL COMMENTS - FREE TEXT/NARRATIVE: History of present illness: []Patient has a history of slow pulse rate and has a pacemaker. 9:45 AM today, while sitting in latter-day he felt his heart rate at 90+ with chest tightness, dizzines and mild shortness of breath. He says he has been ongoing and intermittent since with each episode lasting approximately 45 minutes or longer. Patient recently has had a colonoscopy and an EGD and states he has not felt well since. Review of systems: As per history of present illness and below otherwise all systems reviewed and negative. Past medical history: As per history of present illness and as reviewed below otherwise noncontributory. Surgical history: As per history of present illness and as reviewed below otherwise noncontributory. Social history: No reported history of drug or alcohol abuse. Family history: As per history of present illness and as reviewed below otherwise noncontributory. Physical exam: General: Well developed, well nourished in NAD HEENT: Atraumatic, normocephalic, pupils reactive, negative for conjunctival pallor or scleral icterus, mucous membranes moist, throat clear, neck supple, nontender, trachea midline. Lungs: Clear to auscultation, breath sounds equal bilaterally, chest nontender. Heart: S1S2, regular, negative for clicks, rubs, or JVD. Abdomen: NABS, Soft, nondistended, nontender. Negative for masses or hepatosplenomegaly. Negative for costovertebral tenderness. Pelvis: Stable nontender. Genitourinary: Deferred. Rectal: Deferred. Extremities: Atraumatic, negative for cords or calf pain. Neurovascular unremarkable. Neuro: Awake, alert, oriented. Cranial nerves II through XII unremarkable. Cerebellum unremarkable. Motor and sensory unremarkable throughout. Exam nonfocal. Skin:warm and dry Diagnostics: EKG, CBC, chemistry, troponin, chest x-ray Therapeutics: Nitroglycerin, Aspirin ED Course: Stable Impression: Chest pain-ongoing Prescriptions: None Plan: Transfer to [facility] to Dr. Harkins in the ED for ongoing chest pain Definitive disposition and diagnosis as appropriate pending reevaluation and review of above. Chest Pain Score (Numeric/FACES): 5 - Related Data Allergies Allergy/AdvReac Type Severity Reaction Status Date / Time acetaminophen [From Percocet] Allergy Anaphylactic Verified 08/25/18 12:52 Shock codeine Allergy Anaphylactic Verified 08/25/18 12:52 Shock hydrocodone bitartrate Allergy Anaphylactic Verified 08/25/18 12:52 [From Vicodin] Shock morphine Allergy Anaphylactic Verified 08/25/18 12:52 Shock oxycodone [From OxyContin] Allergy Redness Verified 08/25/18 12:52 oxycodone HCl [From Percocet] Allergy Anaphylactic Verified 08/25/18 12:52 Shock Home Meds: Home Meds Levothyroxine Sodium [Synthroid] 100 mcg PO DAILY 09/19/15 [History] Metoprolol Succinate [Toprol XL] 0.5 tab PO BID 09/19/15 [History] Sertraline [Zoloft] 100 mg PO DAILY 09/19/15 [History] levETIRAcetam [Keppra] 750 mg PO DAILY 09/19/15 [History] Midodrine 5 mg PO DAILY 12/27/16 [History] atorvaSTATin Calcium [Atorvastatin Calcium] 80 mg PO DAILY 12/27/16 [History] traZODone HCl [Trazodone HCl] 100 mg PO DAILY 12/27/16 [History] Ondansetron [Zofran ODT] 4 mg PO Q6H PRN #8 tab.dis 05/03/18 [Rx] Past Medical History Cardiovascular History: Reports: Pacemaker, Other (See Below) Other Cardiovascular History: Vasovagal syncope dx Musculoskeletal History: Reports: Fibromyalgia, Other (See Below) Other Musculoskeletal History: R shoulder injury Neurological History: Reports: CVA, Seizure Psychiatric History: Reports: Anxiety, Depression Endocrine/Metabolic History: Reports: Other (See Below) Other Endocrine/Metabolic History: Waqar's - Infectious Disease History Infectious Disease History: Reports: C-Difficile - Past Surgical History GI Surgical History: Reports: Colonoscopy Musculoskeletal Surgical History: Reports: Arthroscopic Knee, Arthroscopic Procedure Social & Family History - Family History Family Medical History: Noncontributory - Caffeine Use Caffeine Use: Reports: Coffee Caffeine Use Comment: rare ED ROS GENERAL - Review of Systems Review Of Systems: ROS reveals no pertinent complaints other than HPI. ED EXAM, GENERAL - Physical Exam Exam: See Below (See history of present illness) Course - Vital Signs Last Recorded V/S: Last Vital Signs Temp 97.1 F 08/25/18 12:23 Pulse 90 08/25/18 12:23 Resp 17 08/25/18 12:23 BP 128/64 08/25/18 13:33 Pulse Ox 98 08/25/18 12:23 - Orders/Labs/Meds Orders: Active Orders 24 hr Category Date Time Status Patient Status [ADT] Stat ADT 08/25/18 13:21 Active Cardiac Monitoring [RC] . DIRECTED Care 08/25/18 12:23 Active EKG Documentation Completion [RC] STAT Care 08/25/18 12:23 Active Saline Lock Insert [OM.PC] Stat Oth 08/25/18 12:23 Ordered Labs: Laboratory Tests 08/25/18 08/25/18 Range/Units 12:16 12:16 WBC 8.08 (4.0-11.0) K/uL RBC 4.96 (4.50-5.90) M/uL Hgb 15.7 (13.0-17.0) g/dL Hct 45.6 (38.0-50.0) % MCV 91.9 (80.0-98.0) fL MCH 31.7 (27.0-32.0) pg MCHC 34.4 (31.0-37.0) g/dL RDW Std Deviation 42.2 (28.0-62.0) fl RDW Coeff of Bela 13 (11.0-15.0) % Plt Count 198 (150-400) K/uL MPV 9.30 (7.40-12.00) fL Neut % (Auto) 64.3 (48.0-80.0) % Lymph % (Auto) 27.5 (16.0-40.0) % Love % (Auto) 6.6 (0.0-15.0) % Eos % (Auto) 1.2 (0.0-7.0) % Baso % (Auto) 0.4 (0.0-1.5) % Neut # (Auto) 5.2 (1.4-5.7) K/uL Lymph # (Auto) 2.2 (0.6-2.4) K/uL Love # (Auto) 0.5 (0.0-0.8) K/uL Eos # (Auto) 0.1 (0.0-0.7) K/uL Baso # (Auto) 0.0 (0.0-0.1) K/uL Nucleated RBC % 0.0 /100WBC Nucleated RBCs # 0 K/uL Sodium 141 (136-148) mmol/L Potassium 4.1 (3.5-5.1) mmol/L Chloride 104 (98-107) mmol/L Carbon Dioxide 27.3 (21.0-32.0) mmol/L BUN 14 (7.0-18.0) mg/dL Creatinine 1.2 (0.8-1.3) mg/dL Est Cr Clr Drug Dosing 79.94 mL/min Estimated GFR (MDRD) > 60.0 ml/min Glucose 150 H (74-106) mg/dL Calcium 9.0 (8.5-10.1) mg/dL Total Bilirubin 0.3 (0.2-1.0) mg/dL AST 36 (15-37) IU/L ALT 93 H (14-63) IU/L Alkaline Phosphatase 83 (46-116) U/L Troponin I < 0.050 (0.000-0.056) ng/mL Total Protein 7.2 (6.4-8.2) g/dL Albumin 4.2 (3.4-5.0) g/dL Globulin 3.0 (2.6-4.0) g/dL Albumin/Globulin Ratio 1.4 (0.9-1.6) Meds: Medications Discontinued Medications Generic Name Dose Route Start Last Admin Trade Name Nabor PRN Reason Stop Dose Admin Aspirin 324 mg 08/25/18 13:03 08/25/18 13:21 Aspirin PO 08/25/18 13:04 324 mg ONETIME ONE Administration Sodium Chloride 1,000 mls @ 999 mls/hr 08/25/18 13:03 08/25/18 13:20 Normal Saline IV 08/25/18 14:03 999 mls/hr .Bolus ONE Administration Ketorolac Tromethamine 30 mg 08/25/18 13:39 08/25/18 13:43 Toradol IVPUSH 08/25/18 13:40 30 mg ONETIME ONE Administration Ketorolac Tromethamine Confirm 08/25/18 13:39 08/25/18 13:44 Toradol Administered 08/25/18 13:40 Not Given Dose 30 mg .ROUTE .STK-MED ONE Lorazepam 0.5 mg 08/25/18 14:10 08/25/18 14:16 Ativan IVPUSH 08/25/18 14:11 0.5 mg ONETIME ONE Administration Lorazepam Confirm 08/25/18 14:13 Ativan Administered 08/25/18 14:14 Dose 2 mg .ROUTE .STK-MED ONE Nitroglycerin 0.4 mg 08/25/18 13:03 08/25/18 13:33 Nitrostat SL 0.4 mg Q5M PRN Administration Chest Pain Sodium Chloride 10 ml 08/25/18 12:23 Saline Flush FLUSH ASDIRECTED PRN Keep Vein Open Sodium Chloride 2.5 ml 08/25/18 12:23 Saline Flush FLUSH ASDIRECTED PRN Keep Vein Open Departure - Departure Time of Disposition: 16:20 Disposition: DC/Tfer to Acute Hospital 02 Reason for Transfer *Q: Other Condition: Good Clinical Impression: Chest pain Qualifiers: Chest pain type: unspecified Qualified Code(s): R07.9 - Chest pain, unspecified - My Orders Last 24 Hours: My Active Orders 08/25/18 12:23 Cardiac Monitoring [RC] . DIRECTED EKG Documentation Completion [RC] STAT Saline Lock Insert [OM.PC] Stat 08/25/18 13:21 Patient Status [ADT] Stat - Assessment/Plan Last 24 Hours: My Active Orders 08/25/18 12:23 Cardiac Monitoring [RC] . DIRECTED EKG Documentation Completion [RC] STAT Saline Lock Insert [OM.PC] Stat 08/25/18 13:21 Patient Status [ADT] Stat
--- NOTE | 2018-08-25 12:52 | CR ---
INDICATION: Pain, shortness of breath TECHNIQUE: Portable AP upright radiograph of the chest COMPARISON: None FINDINGS: Cardiomediastinal silhouette: Normal heart size. Left chest wall dual lead pacemaker with the tips projecting over the right atrium and right ventricle. Lungs and pleural spaces: Somewhat low lung volumes. No focal consolidation. No pulmonary edema. No pleural effusion or pneumothorax. IMPRESSION: No acute cardiopulmonary process. Dictated by Virgie Thompson MD @ 08/25/2018 12:50:09 PM Dictated by: Virgie Thompson MD @ 08/25/2018 12:50:16 (Electronically Signed)
[2018-08-25 12:53] LABS: CHLORIDE,CL 104 mmol/L (98-107); SODIUM,NA 141 mmol/L (136-148)
[2018-08-25] MEDS ORDERED: Aspirin 81 MG Tab.Chew PO ONE (13:03)
[2018-08-25] MEDS ORDERED: Sodium Chloride 0.9% 1,000 ML IV ONE (13:03)
[2018-08-25] MEDS: Nitroglycerin 0.4 MG Tab.SL SL PRN ×3 (13:22→13:33)
[2018-08-25 13:33] VITALS: BP 128/64
[2018-08-25] MEDS ORDERED: Ketorolac 30 MG/ML SDV IVPUSH ONE (13:39)
[2018-08-25] MEDS ORDERED: Ketorolac 30 MG/ML SDV ONE (13:39)
[2018-08-25] MEDS ORDERED: LORazepam 2 MG/ML SDV IVPUSH ONE (14:10)
[2018-08-25] MEDS ORDERED: LORazepam 2 MG/ML SDV ONE (14:13)
== END 2018-08-25 15:00 ==
LOC: MW.ED 12:14 → MW.MS 13:32 → UNDOADMOB 13:32 → UNDODISOB 14:10
DX: R07.89 Other chest pain (principal); F41.9 Anxiety disorder, unspecified; F32.9 Major depressive disorder, single episode, unspecified; Z79.899 Other long term (current) drug therapy; Z88.5 Allergy status to narcotic agent; Z88.8 Allergy status to other drugs, medicaments and biological substances; Z86.73 Personal history of transient ischemic attack (TIA), and cerebral infarction without residual deficits
CPT/HCPCS: 36415; 71045; 80053; 84484; 85025; 93005; 96361; 96374; 96375; 99285; A9270; J1885; J2060; J7040; 99284

== ENCOUNTER 2018-10-25 13:30 | Emergency (ER) | payer OTHER, MEDICARE, BC ==
[2018-10-25] MEDS ORDERED: Ketorolac 60 MG/2 ML SDV IM ONE (14:03)
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
--- NOTE | 2018-10-25 15:05 | CR ---
INDICATION: Pain TECHNIQUE: Two views right elbow COMPARISON: None FINDINGS: Bones: Alignment is normal. No fractures. Olecranon spur. Joint spaces: Unremarkable. Soft tissues: Unremarkable. IMPRESSION: Olecranon spur, otherwise unremarkable right elbow. Dictated by Jaems Ascencio MD @ 10/25/2018 3:02:49 PM Dictated by: James Ascencio MD @ 10/25/2018 15:03:30 (Electronically Signed)
--- NOTE | 2018-10-25 15:07 | CR ---
INDICATION: CHRONIC RT SHOULDER PAIN TECHNIQUE: Right shoulder 3 views COMPARISON: None. FINDINGS: Bones: Alignment is normal. No fractures or bone lesions. Joint spaces: Unremarkable. Soft tissues: Unremarkable. IMPRESSION: Unremarkable right shoulder. Dictated by: James Ascencio MD @ 10/25/2018 15:05:08 (Electronically Signed)
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
[2018-10-25 15:52] VITALS: BP 111/69
== END 2018-10-25 15:40 | disposition home or self-care (01) ==
LOC: MW.ED 13:30
DX: M25.511 Pain in right shoulder (principal); M25.521 Pain in right elbow; Z88.6 Allergy status to analgesic agent; Z88.5 Allergy status to narcotic agent; Z79.899 Other long term (current) drug therapy; Z86.73 Personal history of transient ischemic attack (TIA), and cerebral infarction without residual deficits; F41.9 Anxiety disorder, unspecified; F32.9 Major depressive disorder, single episode, unspecified
CPT/HCPCS: 72040; 73030; 73070; 93005; 96372; 99283; J1885; J2360

== ENCOUNTER 2019-09-08 14:32 | Emergency (ER) | payer MEDICARE, OTHER, BC ==
[2019-09-08 15:14] LABS: BLOOD UREA NITROGEN,BUN 15 mg/dL (7.0-18.0); CARBON DIOXIDE,CO2 26.4 mmol/L (21.0-32.0); CHLORIDE,CL 104 mmol/L (98-107); GLUCOSE RANDOM 96 mg/dL (74-106); POTASSIUM,K 4.1 mmol/L (3.5-5.1); SODIUM,NA 140 mmol/L (136-148)
--- NOTE | 2019-09-08 16:04 | CR ---
Chest: Portable view of the chest was obtained. Comparison: Prior chest x-ray of 08/25/18. Heart size and mediastinum are normal. Lungs are clear with no acute parenchymal change. Pacemaker is noted. Bony structures are grossly intact. Impression: 1. Nothing acute is seen on portable chest x-ray. Diagnostic code #1 This report was dictated in MDT
--- NOTE | 2019-09-08 16:48 | EDM.PDOC ---
ED HPI GENERAL MEDICAL PROBLEM - General Chief Complaint: Chest Pain Stated Complaint: SHORTNESS OF BREATHE; CHEST TIGHTNESS Time Seen by Provider: 09/08/19 14:56 Source of Information: Reports: Patient History Limitations: Reports: No Limitations - History of Present Illness INITIAL COMMENTS - FREE TEXT/NARRATIVE: 54-year-old male presents the emergency room chief complaint of shortness of [facility]. Is not hypoxic chest Pain Score (Numeric/FACES): 7 - Related Data Allergies Allergy/AdvReac Type Severity Reaction Status Date / Time acetaminophen [From Percocet] Allergy Anaphylactic Verified 09/08/19 14:37 Shock codeine Allergy Anaphylactic Verified 09/08/19 14:37 Shock hydrocodone bitartrate Allergy Anaphylactic Verified 09/08/19 14:37 [From Vicodin] Shock morphine Allergy Anaphylactic Verified 09/08/19 14:37 Shock oxycodone [From OxyContin] Allergy Redness Verified 09/08/19 14:37 oxycodone HCl [From Percocet] Allergy Anaphylactic Verified 09/08/19 14:37 Shock Home Meds: Home Meds Levothyroxine Sodium [Synthroid] 100 mcg PO DAILY 09/19/15 [History] Metoprolol Succinate [Toprol XL] 0.5 tab PO BID 09/19/15 [History] Sertraline [Zoloft] 100 mg PO DAILY 09/19/15 [History] levETIRAcetam [Keppra] 750 mg PO BID 09/19/15 [History] Midodrine 2 tab PO BID 12/27/16 [History] atorvaSTATin Calcium [Atorvastatin Calcium] 80 mg PO BEDTIME 12/27/16 [History] traZODone HCl [Trazodone HCl] 100 mg PO BEDTIME 12/27/16 [History] Diclofenac Sodium [Voltaren] 75 mg PO BIDMEALS PRN #12 tab.cr 10/25/18 [Rx] Past Medical History Cardiovascular History: Reports: Pacemaker, Other (See Below) Other Cardiovascular History: Vasovagal syncope dx Musculoskeletal History: Reports: Fibromyalgia, Other (See Below) Other Musculoskeletal History: R shoulder injury Neurological History: Reports: CVA, Seizure Psychiatric History: Reports: Anxiety, Depression Endocrine/Metabolic History: Reports: Other (See Below) Other Endocrine/Metabolic History: Waqar's - Infectious Disease History Infectious Disease History: Reports: Chicken Pox - Past Surgical History GI Surgical History: Reports: Colonoscopy Musculoskeletal Surgical History: Reports: Arthroscopic Knee, Arthroscopic Procedure Social & Family History - Family History Family Medical History: Noncontributory - Tobacco Use Smoking Status *Q: Never Smoker - Caffeine Use Caffeine Use: Reports: Coffee Caffeine Use Comment: rare - Recreational Drug Use Recreational Drug Use: No ED ROS GENERAL - Review of Systems Review Of Systems: See Below Constitutional: Reports: No Symptoms, Fever, Weakness HEENT: Reports: No Symptoms Respiratory: Reports: Shortness of Breath, Cough Cardiovascular: Reports: No Symptoms Endocrine: Reports: No Symptoms GI/Abdominal: Reports: No Symptoms : Reports: No Symptoms Musculoskeletal: Reports: No Symptoms Skin: Reports: No Symptoms Neurological: Reports: No Symptoms Psychiatric: Reports: No Symptoms Hematologic/Lymphatic: Reports: No Symptoms Immunologic: Reports: No Symptoms ED EXAM, GENERAL - Physical Exam Exam: See Below Exam Limited By: No Limitations General Appearance: Alert, WD/WN, No Apparent Distress Eye Exam: Bilateral Eye: Normal Fundi, Normal Inspection Throat/Mouth: Normal Inspection, Normal Lips, Normal Oropharynx, Normal Voice Head: Atraumatic, Normocephalic Neck: Normal Inspection, Supple, Non-Tender Respiratory/Chest: No Respiratory Distress, Lungs Clear, Normal Breath Sounds, No Accessory Muscle Use, Chest Non-Tender Cardiovascular: Normal Peripheral Pulses, Regular Rate, Rhythm, No Edema, No JVD , No Murmur, No Rub GI/Abdominal: Normal Bowel Sounds, Soft (Male) Exam: Deferred Rectal (Males) Exam: Deferred Back Exam: Normal Inspection, Full Range of Motion Extremities: Normal Inspection, Normal Range of Motion, No Pedal Edema, Normal Capillary Refill Neurological: Alert, Oriented, CN II-XII Intact, Normal Cognition, Normal Gait, Normal Reflexes, No Motor/Sensory Deficits Psychiatric: Normal Affect, Normal Mood, Anxious Skin Exam: Warm, Dry, Intact, Normal Color, No Rash Lymphatic: No Adenopathy EKG INTERPRETATION Rhythm: NSR Fitzwilliam: Normal QRS: Normal ST-T: Normal Course - Vital Signs Text/Narrative:: Found to have possibly viral bronchitis. Patient was tested for COVID and influenza. Results are pending at this time. Patient will be discharged home with Danielito Peña. Last Recorded V/S: Last Vital Signs Temp 97.6 F 09/08/19 14:37 Pulse 90 09/08/19 14:37 Resp 18 09/08/19 14:37 BP 158/90 H 09/08/19 14:37 Pulse Ox 97 09/08/19 14:37 - Orders/Labs/Meds Orders: Active Orders 24 hr Category Date Time Status EKG Documentation Completion [RC] STAT Care 09/08/19 14:50 Active CORONAVIRUS COVID-19 PCR PHL Stat Lab 09/08/19 15:21 Received Isolation [COMM] Routine Oth 09/08/19 15:41 Active Labs: Laboratory Tests 09/08/19 09/08/19 Range/Units 14:45 14:45 WBC 6.89 (4.0-11.0) K/uL RBC 5.08 (4.50-5.90) M/uL Hgb 16.1 (13.0-17.0) g/dL Hct 46.7 (38.0-50.0) % MCV 91.9 (80.0-98.0) fL MCH 31.7 (27.0-32.0) pg MCHC 34.5 (31.0-37.0) g/dL RDW Std Deviation 41.5 (28.0-62.0) fl RDW Coeff of Bela 12 (11.0-15.0) % Plt Count 230 (150-400) K/uL MPV 9.30 (7.40-12.00) fL Nucleated RBC % 0.0 /100WBC Nucleated RBCs # 0 K/uL Sodium 140 (136-148) mmol/L Potassium 4.1 (3.5-5.1) mmol/L Chloride 104 (98-107) mmol/L Carbon Dioxide 26.4 (21.0-32.0) mmol/L BUN 15 (7.0-18.0) mg/dL Creatinine 1.1 (0.8-1.3) mg/dL Est Cr Clr Drug Dosing 91.33 mL/min Estimated GFR (MDRD) > 60.0 ml/min Glucose 96 (74-106) mg/dL Calcium 9.0 (8.5-10.1) mg/dL Total Bilirubin 0.5 (0.2-1.0) mg/dL AST 38 H (15-37) IU/L ALT 84 H (14-63) IU/L Alkaline Phosphatase 86 (46-116) U/L Troponin I < 0.050 (0.000-0.056) ng/mL Total Protein 7.2 (6.4-8.2) g/dL Albumin 4.5 (3.4-5.0) g/dL Globulin 2.7 (2.6-4.0) g/dL Albumin/Globulin Ratio 1.7 H (0.9-1.6) Departure - Departure Time of Disposition: 16:44 Disposition: Home, Self-Care 01 Condition: Good Clinical Impression: Viral bronchitis Instructions: Acute Bronchitis, Adult, [id number] Referrals: PCP,None [Primary Care Provider] - Additional Instructions: Patient is to take his medication as prescribed. [facility] Patient to return for any problem Sepsis Event Note - Evaluation Sepsis Screening Result: No Definite Risk - Focused Exam Vital Signs: Vital Signs Temp Pulse Resp BP Pulse Ox 09/08/19 14:37 97.6 F 90 18 158/90 H 97 Date Exam was Performed: 09/08/19 Time Exam was Performed: 16:43 - My Orders Last 24 Hours: My Active Orders 09/08/19 14:50 EKG Documentation Completion [RC] STAT 09/08/19 15:21 CORONAVIRUS COVID-19 PCR PHL Stat 09/08/19 15:41 Isolation [COMM] Routine - Assessment/Plan Last 24 Hours: My Active Orders 09/08/19 14:50 EKG Documentation Completion [RC] STAT 09/08/19 15:21 CORONAVIRUS COVID-19 PCR PHL Stat 09/08/19 15:41 Isolation [COMM] Routine
[2019-09-08 17:48] VITALS: BP 135/84; PULSE 61
== END 2019-09-08 17:02 | disposition home or self-care (01) ==
LOC: MW.ED 14:32
DX: J20.8 Acute bronchitis due to other specified organisms (principal); R56.9 Unspecified convulsions; F41.9 Anxiety disorder, unspecified; F32.9 Major depressive disorder, single episode, unspecified; Z79.899 Other long term (current) drug therapy; Z88.5 Allergy status to narcotic agent; Z88.6 Allergy status to analgesic agent; Z86.73 Personal history of transient ischemic attack (TIA), and cerebral infarction without residual deficits
CPT/HCPCS: 71045; 71045-26; 80053; 84484; 85027; 87804; 93005; 99282; 99285-25; U0002

== ENCOUNTER 2022-02-20 19:00 | Emergency (ER) | payer MEDICARE, BC ==
[2022-03-17 12:17] LABS: BLOOD UREA NITROGEN,BUN 22 mg/dL (7.0-18.0); CARBON DIOXIDE,CO2 28.8 mmol/L (21.0-32.0); CHLORIDE,CL 105 mmol/L (98-107); ESTIMATED GFR 101 mL/min (>60); GLUCOSE RANDOM 113 mg/dL (74-106); POTASSIUM,K 4.2 mmol/L (3.5-5.1); SODIUM,NA 141 mmol/L (136-148)
== END 2022-02-20 23:00 | disposition home or self-care (01) ==
LOC: MW.ED 19:00
DX: R53.1 Weakness (principal); Z20.822 Contact with and (suspected) exposure to COVID-19
CPT/HCPCS: 36415; 80053; 84484; 85025; 99284; U0002

== ENCOUNTER 2023-08-18 14:56 | Emergency (ER) | payer MEDICARE, BC ==
[2023-08-18 16:05] LABS: BASOPHILS ABSOLUTE AUTO 0.07 K/uL (0.00-0.20); BASOPHILS PERCENT AUTO 0.9 % (0.0-1.0); EOSINOPHILS ABSOLUTE AUTO 0.28 K/uL (0.00-0.45); EOSINOPHILS PERCENT AUTO 3.6 % (0.0-6.0); HEMATOCRIT 45.9 % (42.0-52.0); HEMOGLOBIN 16.1 g/dL (14.0-18.0); IMMATURE GRAN ABSOLUTE AUTO 0.02 K/uL (0.00-0.05); IMMATURE GRAN PERCENT AUTO 0.3 % (0.0-0.4); LYMPHOCYTES ABSOLUTE AUTO 2.94 K/uL (1.00-4.80); LYMPHOCYTES PERCENT AUTO 38.1 % (24.0-44.0); MEAN CORPUSCULAR HEMOGLOBIN 31.9 pg (28.0-32.0); MEAN CORPUSCULAR HGB CONC 35.1 g/dL (32.0-36.0); MEAN CORPUSCULAR VOLUME 91.1 fL (83.0-99.0); MEAN PLATELET VOLUME 8.9 fL (9.4-12.4); MONOCYTES ABSOLUTE AUTO 0.61 K/uL (0.00-0.80); MONOCYTES PERCENT AUTO 7.9 % (0.0-8.0); NEUTROPHILS ABSOLUTE AUTO 3.79 K/uL (1.80-7.70); NEUTROPHILS PERCENT AUTO 49.2 % (41.0-71.0); PLATELET COUNT,PLT 231 K/uL (150-400); RED BLOOD CELL COUNT 5.04 M/uL (4.52-5.90); WHITE BLOOD CELL COUNT,WBC 7.71 K/uL (3.9-11.3)
[2023-08-18 16:36] LABS: A/G RATIO 1.3 (0.9-1.6); ALBUMIN 4.2 g/dL (3.4-5.0); BILIRUBIN TOTAL 0.9 mg/dL (0.2-1.0); CALCIUM 9.2 mg/dL (8.5-10.1); CARBON DIOXIDE,CO2 28.6 mmol/L (21.0-32.0); EST CRCL DRUG DOSING (CG) 95.9 mL/min; POTASSIUM,K 4.4 mmol/L (3.5-5.1); PROTEIN TOTAL,TP 7.4 g/dL (6.4-8.2); TSH ULTRASENSITIVE 5.54 uIU/mL (0.36-3.74)
[2023-08-18 16:57] LABS: T4 FREE 0.87 ng/dL (0.76-1.46)
[2023-08-18 18:25] VITALS: BP 161/90; PULSE 84
== END 2023-08-18 18:25 | disposition home or self-care (01) ==
LOC: MW.ED 14:56
DX: R42 Dizziness and giddiness (principal); R53.83 Other fatigue; R06.00 Dyspnea, unspecified; E03.9 Hypothyroidism, unspecified; R63.5 Abnormal weight gain; Z88.5 Allergy status to narcotic agent; Z88.6 Allergy status to analgesic agent; Z86.73 Personal history of transient ischemic attack (TIA), and cerebral infarction without residual deficits; Z95.0 Presence of cardiac pacemaker; Z79.899 Other long term (current) drug therapy; Z75.8 Other problems related to medical facilities and other health care
CPT/HCPCS: 36415; 71046; 71046-26; 80053; 83880; 84439; 84443; 84484; 85025; 93010; 99283; 99285